=== PATIENT | male | born 1990 | race Caucasian/White ===

== ENCOUNTER 2020-10-23 17:07 | Emergency (ER) | payer OTHER ==
[2020-10-23] MEDS ORDERED: Ondansetron 4 MG/2 ML SDV IVPUSH ONE (18:02)
[2020-10-23] MEDS ORDERED: Sodium Chloride 0.9% 1,000 ML IV SCH (18:15)
--- NOTE | 2020-10-23 18:38 | EDM.PDOC ---
ED HPI GENERAL MEDICAL PROBLEM - General Chief Complaint: General Stated Complaint: SICK Time Seen by Provider: 10/23/20 17:46 Source of Information: Reports: Patient History Limitations: Reports: No Limitations - History of Present Illness INITIAL COMMENTS - FREE TEXT/NARRATIVE: 30 yo presents to the ER with his . Earlier today he hit himself in the thumb with a hammer staple. He pulled the staple out. It was very painful. In the hours after the injury he became very light headed and nauseated. no syncope. He does need his tetanus updated Left Finger-Thumb Pain Score (Numeric/FACES): 6 - Related Data Allergies Allergy/AdvReac Type Severity Reaction Status Date / Time No Known Allergies Allergy Verified 10/23/20 17:40 Home Meds: Home Meds NK [No Known Home Meds] 10/23/20 [History] Past Medical History Musculoskeletal History: Reports: Fracture - Infectious Disease History Infectious Disease History: Reports: None Other Infectious Disease History: covid vacc Social & Family History - Tobacco Use Tobacco Use Status *Q: Never Tobacco User - Caffeine Use Caffeine Use: Reports: Soda - Recreational Drug Use Recreational Drug Use: No ED ROS GENERAL - Review of Systems Review Of Systems: See Below Constitutional: Denies: Fever, Chills, Fatigue Respiratory: Denies: Shortness of Breath, Wheezing Cardiovascular: Denies: Chest Pain ED EXAM, GENERAL - Physical Exam Exam: See Below Exam Limited By: No Limitations General Appearance: Alert, WD/WN, No Apparent Distress Head: Atraumatic, Normocephalic Neck: Normal Inspection, Supple, Non-Tender, Full Range of Motion. No: Lymphadenopathy (R), Lymphadenopathy (L) Respiratory/Chest: No Respiratory Distress, Lungs Clear, Normal Breath Sounds. No: Crackles, Rhonchi, Wheezing Cardiovascular: Regular Rate, Rhythm, No Murmur Skin Exam: Warm, Dry, Intact, Other (puncture wound to left distal thumb, ecchymosis to wilcox surface) Course - Vital Signs Last Recorded V/S: Last Vital Signs Temp 36.6 C 10/23/20 17:38 Pulse 80 10/23/20 17:38 Resp 16 10/23/20 17:38 BP 142/87 H 10/23/20 17:38 Pulse Ox 99 10/23/20 17:38 - Orders/Labs/Meds Orders: Active Orders 24 hr Category Date Time Status Vaccines to be Administered [RC] PER UNIT ROUTINE Care 10/23/20 18:54 Active Sodium Chloride 0.9% [Normal Saline] 1,000 ml Med 10/23/20 18:15 Active IV ASDIRECTED Medication Orders Sodium Chloride (Normal Saline) 1,000 mls @ 999 mls/hr IV ASDIRECTED ADEOLA Last Admin: 10/23/20 18:57 Dose: 999 mls/hr Documented by: PARISH Meds: Medications Generic Name Dose Route Start Last Admin Trade Name Freq PRN Reason Stop Dose Admin Sodium Chloride 1,000 mls @ 999 mls/hr 10/23/20 18:15 10/23/20 18:57 Normal Saline IV 999 mls/hr ASDIRECTED ADEOLA Administration Discontinued Medications Generic Name Dose Route Start Last Admin Trade Name Freq PRN Reason Stop Dose Admin Diphtheria/Tetanus/Acell Pertussis 0.5 ml 10/23/20 18:54 10/23/20 19:07 Diphtheria,Pertussis(Acell),Tetanus Vaccine 0.5 Ml Syringe IM 10/23/20 18:55 0.5 ml .ONCE ONE Administration Ondansetron HCl 4 mg 10/23/20 18:02 10/23/20 18:57 Ondansetron 4 Mg/2 Ml Sdv IVPUSH 10/23/20 18:03 4 mg ONETIME ONE Administration - Re-Assessments/Exams Free Text/Narrative Re-Assessment/Exam: 10/23/20 19:58 feeling much better after fluids. tetanus updated Departure - Departure Time of Disposition: 19:58 Disposition: Home, Self-Care 01 Condition: Good Clinical Impression: Shock Puncture wound of finger of left hand Qualifiers: Encounter type: initial encounter Qualified Code(s): S61.239A - Puncture wound without foreign body of unspecified finger without damage to nail, initial encounter - Discharge Information *PRESCRIPTION DRUG MONITORING PROGRAM REVIEWED*: Not Applicable *COPY OF PRESCRIPTION DRUG MONITORING REPORT IN PATIENT KELLI: Not Applicable Instructions: Puncture Wound, [id number] Referrals: PCP,None [Primary Care Provider] - Forms: ED Department Discharge Additional Instructions: wash with warm soapy water observe for signs of infection ice finger for pain control. ibuprofen 400-600 mg every 6 hours as needed for pain tylenol 1000 mg every 6 hours as needed for pain rest maintain fluid intake Sepsis Event Note (ED) - Evaluation Sepsis Screening Result: No Definite Risk - Focused Exam Vital Signs: Vital Signs Temp Pulse Resp BP Pulse Ox 10/23/20 17:38 36.6 C 80 16 142/87 H 99 10/23/20 17:30 36.6 C 80 16 142/87 H 99 - My Orders Last 24 Hours: My Active Orders 10/23/20 18:15 Sodium Chloride 0.9% [Normal Saline] 1,000 ml IV ASDIRECTED 10/23/20 18:54 Vaccines to be Administered [RC] PER UNIT ROUTINE - Assessment/Plan Last 24 Hours: My Active Orders 10/23/20 18:15 Sodium Chloride 0.9% [Normal Saline] 1,000 ml IV ASDIRECTED 10/23/20 18:54 Vaccines to be Administered [RC] PER UNIT ROUTINE
[2020-10-23] MEDS ORDERED: Diphtheria,Pertussis(Acell),Tetanus Vaccine 0.5 ML Syringe IM ONE (18:54)
== END 2020-10-23 20:12 | disposition home or self-care (01) ==
LOC: JP.ED 17:07
DX: S61.032A Puncture wound without foreign body of left thumb without damage to nail, initial encounter (principal); S60.222A Contusion of left hand, initial encounter; R57.9 Shock, unspecified; Z23 Encounter for immunization; W22.8XXA Striking against or struck by other objects, initial encounter
CPT/HCPCS: 90471; 90715; 96374; 99283; J2405; J7030